=== PATIENT | male | born 1995 | race African-American/Black ===

== ENCOUNTER 2017-07-31 12:59 | Emergency (ER) | payer OTHER ==
[2017-07-31 13:06] VITALS: BP 150/86
[2017-07-31] MEDS ORDERED: IBUPROFEN 800 MG TABLET PO ONE (13:35)
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
[2017-07-31] MEDS ORDERED: LIDOCAINE 1% INJ-PF (10 MG/ML) 30 ML SDV INJ ONE (14:22)
[2017-07-31] MEDS ORDERED: AMOXICILLIN TR/POT CLAVULANATE 500-125 MG TAB PO ONE (14:23)
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
--- NOTE | 2017-07-31 15:51 | Operative Report ---
Operative Report DATE OF SURGERY: 07/31/17 PREOPERATIVE DIAGNOSIS: Foreign body left index finger POSTOPERATIVE DIAGNOSIS: Foreign body left index finger OPERATION: Excision subcutaneous foreign body left index finger SURGEON: LIVIA FONTANA ANESTHESIA: Local COMPLICATIONS: None ESTIMATED BLOOD LOSS: Minimal PROCEDURE: Procedure detail: Under sterile technique a digital block was performed utilizing 5 cc of lidocaine without epinephrine. Once adequately anesthetized the left index finger was prepped with Betadine and then chlorhexidine and draped in a sterile fashion. A digital tourniquet was placed. The entry wound was opened with a 1 mm transverse extension. Blunt dissection was performed with a hemostat the foreign body was directly visualized and then removed. The wound was irrigated with normal saline. Given the size of the wound I did not feel closure was required. Wound was then dressed with Xeroform and a soft bandage. Patient tolerated procedure well.
== END 2017-07-31 15:47 | disposition home or self-care (01) ==
LOC: ER 12:59
PROC: 0JCK0ZZ Extirpation of Matter from Left Hand Subcutaneous Tissue and Fascia, Open Approach (ICD-10-PCS; principal; 2017-07-31)
DX: S61.201A Unspecified open wound of left index finger without damage to nail, initial encounter (principal); W34.010A Accidental discharge of airgun, initial encounter
CPT/HCPCS: 99284; 73140; 20103; J3490

== ENCOUNTER 2018-10-04 19:09 | Emergency (ER) | payer OTHER ==
[2018-10-04 19:23] VITALS: BP 156/79
--- NOTE | 2018-10-04 21:25 | ER Document Report ---
ED General - General Chief Complaint: Sore Throat Stated Complaint: SORE THROAT Time Seen by Provider: 10/04/18 20:13 Primary Care Provider: CLARENCE RIZVI DO [Primary Care Provider] - Follow up as needed Notes: Patient is a 23-year-old male without chronic medical problems who presents with 2 days of sore throat. Patient describes it as an aching, throbbing, scratching pain to the throat. Nothing improves or worsens that discomfort other than swallowing which the patient states does worsen his symptoms. He has not tried anything for relief. His child was sick recently with similar symptoms. He denies any difficulty breathing. States that he is able to swallow but it is uncomfortable. Denies fever or constitutional symptoms. No vomiting or diarrhea. Has not seen his general physician regarding today's concerns. TRAVEL OUTSIDE OF THE [place] IN LAST 30 DAYS: No - Related Data Allergies/Adverse Reactions: No Known Allergies Allergy (Unverified 07/31/17 13:03) Past Medical History - General Information source: Patient - Social History Smoking Status: Never Smoker Frequency of alcohol use: Occasional Drug Abuse: None Lives with: Family Family History: Reviewed & Not Pertinent Patient has suicidal ideation: No Patient has homicidal ideation: No Renal/ Medical History: Denies: Hx Peritoneal Dialysis - Immunizations Immunizations up to date: Yes Hx Diphtheria, Pertussis, Tetanus Vaccination: Yes Review of Systems - Review of Systems Notes: Constitutional: Negative for fever. HENT: Positive for sore throat. Eyes: Negative for visual changes. Cardiovascular: Negative for chest pain. Respiratory: Negative for shortness of breath. Gastrointestinal: Negative for abdominal pain, vomiting or diarrhea. Genitourinary: Negative for dysuria. Musculoskeletal: Negative for back pain. Skin: Negative for rash. Neurological: Negative for headaches, weakness or numbness. 10 point ROS negative except as marked above and in HPI. Physical Exam - Vital signs Vitals: Temp Pulse Resp BP Pulse Ox 98.0 F 80 14 156/79 H 98 10/04/18 19:22 10/04/18 19:22 10/04/18 19:22 10/04/18 19:22 10/04/18 19:22 Interpretation: Hypertensive Notes: PHYSICAL EXAMINATION: GENERAL: Well-appearing, well-nourished and in no acute distress. HEAD: Atraumatic, normocephalic. EYES: Pupils equal round and reactive to light, extraocular movements intact, sclera anicteric, conjunctiva are normal. ENT: nares patent, diffuse pharyngeal erythema and scattered ulcerations without tonsillar exudates NECK: Normal range of motion, bilateral anterior cervical lymphadenopathy LUNGS: Breath sounds clear to auscultation bilaterally and equal. No wheezes rales or rhonchi. HEART: Regular rate and rhythm without murmurs ABDOMEN: Soft, nontender, normoactive bowel sounds. No guarding, no rebound. No masses appreciated. EXTREMITIES: Normal range of motion, no pitting or edema. No cyanosis. NEUROLOGICAL: No focal neurological deficits. Moves all extremities spontaneously and on command. PSYCH: Normal mood, normal affect. SKIN: Warm, Dry, normal turgor, no rashes or lesions noted. Course - Re-evaluation Re-evalutation: 10/04/18 21:24 Presentation of several days of sore throat in an otherwise well-appearing patient. Rapid strep is negative. History and exam are not consistent with a retropharyngeal abscess or peritonsillar abscess. Airway is patent. No difficulty handling oral secretions. Vitals within normal limits. Patient was treated with a dose of dexamethasone and advised on symptomatic care. Suspect likely viral pharyngitis. At this time will discharge with return precautions and follow-up recommendations. Verbal discharge instructions given a the bedside and opportunity for questions given. Medication warnings reviewed. Patient is in agreement with this plan and has verbalized understanding of return precautions and the need for primary care follow-up in the next 24-72 hours. - Vital Signs Vital signs: Temp Pulse Resp BP Pulse Ox 98.0 F 80 14 156/79 H 98 10/04/18 19:22 10/04/18 19:22 10/04/18 19:22 10/04/18 19:22 10/04/18 19:22 Discharge - Discharge Clinical Impression: Viral pharyngitis, Sore throat Condition: Good Disposition: HOME, SELF-CARE Additional Instructions: Your strep test is negative. Your symptoms are likely due to an viral infection and will resolve in the next 1-2 weeks. You have also been given a dose of steroids to help with your throat discomfort. Please continue to take ibuprofen 600 mg every 6 hours or Tylenol 1000 mg every 6 hours as needed for throat discomfort. You can also gargle with salt water. Continue to drink plenty of fluids. Follow-up with your primary care doctor in the next several days. Return if you become unable to swallow, have difficulty breathing, pass out, have persistent vomiting that prevents you from being able to tolerate fluids, or have any other symptoms that are concerning to you. Referrals: CLARENCE RIZVI, DO [Primary Care Provider] - Follow up as needed
[2018-10-04] MEDS ORDERED: DEXAMETHASONE 4 MG TABLET PO ONE (21:54)
== END 2018-10-04 22:05 | disposition home or self-care (01) ==
LOC: ER 19:09
DX: J02.9 Acute pharyngitis, unspecified (principal)
CPT/HCPCS: 87070; 87880; 99283